=== PATIENT | female | born 1970 | race Caucasian/White ===

== ENCOUNTER 2018-09-05 07:38 | Day surgery (SDC) | payer OTHER ==
[~2018-09-05] VITALS: Ht 165.1 cm; Wt 87.7 kg
[2018-09-05] MEDS ORDERED: LORA.5 (08:20)
[2018-09-05] MEDS ORDERED: OMEPRAZOLE MAGN20 MG (08:20)
[2018-09-05] MEDS ORDERED: Flonase 0.05% N16 GM (08:20)
[2018-09-05] MEDS ORDERED: METTREX2.5 (08:21)
[2018-09-05] MEDS ORDERED: VENL25 (08:29)
[2018-09-05] MEDS ORDERED: BUSP5 (08:29)
[2018-09-05] MEDS ORDERED: PROP10 (08:30)
[2018-09-05] MEDS ORDERED: LEVSOD75 (08:31)
[2018-09-05] MEDS ORDERED: HYDSUL200 (08:31)
--- NOTE | 2018-09-05 08:57 | NUR ---
09/05/[address] TO ICU.
== END 2018-09-05 09:34 | disposition home or self-care (01) ==
LOC: ORSCSDS 07:38
PROVIDERS: Internal Medicine Gastroenterology
PROC: 0DB88ZX Excision of Small Intestine, Via Natural or Artificial Opening Endoscopic, Diagnostic (ICD-10-PCS; principal; 2018-09-05 08:45)
PROC: 0DB68ZX Excision of Stomach, Via Natural or Artificial Opening Endoscopic, Diagnostic (ICD-10-PCS; principal; 2018-09-05 08:45)
DX: K25.9 Gastric ulcer, unspecified as acute or chronic, without hemorrhage or perforation (principal); K44.9 Diaphragmatic hernia without obstruction or gangrene; K21.9 Gastro-esophageal reflux disease without esophagitis; E03.9 Hypothyroidism, unspecified; F41.9 Anxiety disorder, unspecified; Z79.899 Other long term (current) drug therapy
CPT/HCPCS: 88305; 88342; J7120